=== PATIENT | male | born 1955 | race Caucasian/White ===

== ENCOUNTER 2017-07-30 10:08 | Emergency (ER) | payer OTHER ==
[~2017-07-30] VITALS: Ht 177.8 cm; Wt 88.0 kg
[2017-07-30 10:10] VITALS: BP 172/89; PULSE 109; RESP 18; TEMP 98.8; O2SAT 97
[2017-07-30 10:28] LABS: BILIRUBIN, URINE NEG (NEG); BLOOD, URINE LARGE (NEG); GLUCOSE,URINE NEG (NEG); KETONE, URINE TRACE mg/dL (NEG); NITRITE,URINE POS (NEG); URINE COLOR YELLOW (YELLW/STRAW); URINE LEUKOCYTE ESTERASE MOD (NEG)
[2017-07-30] MEDS ORDERED: LOSA25TA PO (10:31)
[2017-07-30] MEDS ORDERED: CHOLESTROL (10:31)
[2017-07-30] MEDS ORDERED: LEVO50TA4 PO (10:31)
--- NOTE | 2017-07-30 10:32 | PD ---
HPI Chief Complaint: Complaint Time Seen by Provider: 10:31 Travel History International Travel<30 days: No Contact w/Intl Traveler<30days: No Traveled to known affect area: No History of Present Illness HPI Patient presents with urinary frequency and hematuria since 5:00 yesterday afternoon. Subjective fever. No new rashes. Sexually active. One partner. Denies any history of prostatitis or prostate cancer. Denies any flank pain. Taking fluids well. PFSH Past Medical History Cardiovascular Problems: Yes High Cholesterol: Yes Hypertension: Yes Thyroid Disease: Yes Tetanus Vaccination: Unknown Influenza Vaccination: No ?: Not Social History Alcohol Use: Yes ("A COUPLE BEERS DAILY") Tobacco Use: Yes (2 CIGARS A DAY) Substance Use: No Allergies-Medications (Allergen,Severity, Reaction): Coded Allergies: NSAIDS (Non-Steroidal Anti-Inflamma (Verified Allergy, Intermediate, Hives , 07/30/17) Reported Meds & Prescriptions Reported Meds & Active Scripts Active Reported [Cholestrol] Losartan (Losartan Potassium) 25 Mg Tab Unknown Dose PO DAILY Levothyroxine (Levothyroxine Sodium) 50 Mcg Tab 50 Mcg PO DAILY Review of Systems General / Constitutional: No: Fever Eyes: No: Visual changes HENT: No: Headaches Cardiovascular: No: Chest Pain or Discomfort Respiratory: No: Shortness of Breath Gastrointestinal: No: Abdominal Pain Genitourinary: Positive: Dysuria, Hematuria Musculoskeletal: No: Pain Skin: No Rash Neurologic: No: Weakness Psychiatric: No: Depression Endocrine: No: Polydipsia Hematologic/Lymphatic: No: Easy Bruising Physical Exam Narrative GENERAL: Well-nourished, well-developed patient. SKIN: Focused skin assessment warm/dry. HEAD: Normocephalic. EYES: No scleral icterus. No injection or drainage. NECK: Supple, trachea midline. No JVD or lymphadenopathy. CARDIOVASCULAR: Regular rate and rhythm without murmurs, gallops, or rubs. RESPIRATORY: Breath sounds equal bilaterally. No accessory muscle use. GASTROINTESTINAL: Abdomen soft, non-tender, nondistended. MUSCULOSKELETAL: No cyanosis, or edema. BACK: Nontender without obvious deformity. No CVA tenderness. Data Data Last Documented VS Vital Signs Date Time Temp Pulse Resp B/P (MAP) Pulse Ox O2 Delivery O2 Flow Rate FiO2 07/30/17 10:10 98.8 109 18 172/89 (116) 97 Orders Orders Urinalysis - C+S If Indicated (07/30/17 10:12) Urine Culture (07/30/17 10:15) Labs Laboratory Tests Test 07/30/17 10:15 Urine Collection Type CLEAN CATCH Urine Color YELLOW Urine Turbidity CLOUDY Urine pH 6.0 Urine Specific [place] 1.020 Urine Protein 30 mg/dL Urine Glucose (UA) NEG mg/dL Urine Ketones TRACE mg/dL Urine Occult Blood LARGE Urine Nitrite POS Urine Bilirubin NEG Urine Urobilinogen 1.0 MG/DL Urine Leukocyte Esterase MOD Urine RBC 15-19 /hpf Urine WBC 100-200 /hpf Urine WBC Clumps MOD Urine Squamous Epithelial Cells 0-5 /hpf Urine Amorphous Sediment MOD Urine Bacteria MOD /hpf Microscopic Urinalysis Comment CULTURE INDICATED Urine Collection Time 1015 MDM Medical Decision Making Medical Screen Exam Complete: Yes Emergency Medical Condition: Yes Differential Diagnosis UTI, cystitis, nephritis, nephrolithiasis, prostatitis Narrative Course Assessment and plan discussed with patient and at bedside. Urinalysis positive for UTI Diagnosis Primary Impression: UTI (urinary tract infection) Qualified Codes: N39.0 - Urinary tract infection, site not specified; R31.9 - Hematuria, unspecified Patient Instructions: General Instructions Additional Instructions: Encouraged fluids and a cranberry supplement. Follow-up with PCP. Return to emergency room if any onset of new symptoms. Med/Other Pt SpecificInfo: Prescription(s) given Scripts Ciprofloxacin (Cipro) 500 Mg Tab 500 MG PO BID for Infection for 3 Days, #6 TAB 0 Refills Prov: Patrice Adkins MD 07/30/17 Disposition: 01 DISCHARGE HOME Condition: Good Patrice Adkins MD Jul 30, 2017 10:32
[2017-07-30 10:44] LABS: AMORPHOUS SEDIMENT, URINE MOD; BACTERIA, URINE MOD /hpf; RBC, URINE 15-19 /hpf (0-3); SQUAMOUS EPITHELIAL CELL URINE 0-5 /hpf (0-5); WBC, URINE 100-200 /hpf (0-5); WHITE BLOOD CELL CLUMPS MOD
[2017-07-30] MEDS ORDERED: CIPR-9 PO (10:48)
== END 2017-07-30 11:00 | disposition home or self-care (01) ==
LOC: PHED 10:08
DX: N39.0 Urinary tract infection, site not specified (principal); R31.9 Hematuria, unspecified; B96.20 Unspecified Escherichia coli [E. coli] as the cause of diseases classified elsewhere; I10 Essential (primary) hypertension; Z72.0 Tobacco use
CPT/HCPCS: 81001; 87077; 87086; 87186; 99283

== ENCOUNTER 2017-08-01 07:01 | Emergency (ER) | payer OTHER ==
[~2017-08-01] VITALS: Ht 177.8 cm; Wt 80.0 kg
[~2017-08-01 07:01] MED LIST: CHOLESTROL; CIPR-9 PO; LEVO50TA4 PO; LOSA25TA PO
[2017-08-01 07:12] VITALS: BP 149/96; PULSE 103; RESP 20; TEMP 98.1; O2SAT 98
[2017-08-01] MEDS ORDERED: LOSA50TA PO (07:29)
[2017-08-01] MEDS ORDERED: ATOR10TA15 PO (07:29)
[2017-08-01] MEDS ORDERED: SODIUM CHLOR 0.9% 1000 ML INJ 1,000 ML IV ONE (07:30)
[2017-08-01] MEDS ORDERED: diphenhydrAMINE HCL 50 MG/ML VIAL IV PUSH ONE (07:30)
[2017-08-01] MEDS ORDERED: BACT800T5 PO (08:00)
[2017-08-01] MEDS ORDERED: BENA25CA4 PO (08:00)
[2017-08-01] MEDS ORDERED: EPIN1INJ19 IM (08:00)
--- NOTE | 2017-08-01 08:00 | PD ---
HPI Chief Complaint: Allergic/Adverse Reaction Time Seen by Provider: 07:15 Travel History International Travel<30 days: No Contact w/Intl Traveler<30days: No Traveled to known affect area: No History of Present Illness HPI This is a 61year-old male presents here complaining of hives on his chest. Patient was recently diagnosed with UTI and was given Cipro states that for the last 2 days he noticed hives on his chest that is itchy. Patient denies any shortness of breath or difficulty swallowing although reports tickling throat that started on the same time with the hives. Patient denies any vomiting, chest pain or abdominal pain. PFSH Past Medical History Cardiovascular Problems: Yes High Cholesterol: Yes Hypertension: Yes Musculoskeletal: Yes (achilles tendon repair) Thyroid Disease: Yes Tetanus Vaccination: Unknown Influenza Vaccination: No Social History Alcohol Use: Yes ("A COUPLE BEERS DAILY") Tobacco Use: Yes (2 CIGARS A DAY) Substance Use: No Allergies-Medications (Allergen,Severity, Reaction): Coded Allergies: aspirin (Verified Allergy, Severe, Hives, 08/01/17) ciprofloxacin (Verified Allergy, Severe, Hives, 08/01/17) NSAIDS (Non-Steroidal Anti-Inflamma (Verified Allergy, Intermediate, Hives , 07/30/17) Reported Meds & Prescriptions Reported Meds & Active Scripts Active Epinephrine Inj Pack (Epinephrine) 0.15 Mg/0.15 Ml Pfpen 0.15 Mg IM ONCE Bactrim DS (Sulfamethoxazole-Trimethoprim) 800-160 Mg Tab 1 Tab PO BID 7 Days Benadryl Allergy (Diphenhydramine HCl) 25 Mg Cap 50 Mg PO Q8HR Cipro (Ciprofloxacin HCl) 500 Mg Tab 500 Mg PO BID 3 Days Reported Atorvastatin (Atorvastatin Calcium) 10 Mg Tab 10 Mg PO HS Losartan (Losartan Potassium) 50 Mg Tab 50 Mg PO DAILY Levothyroxine (Levothyroxine Sodium) 50 Mcg Tab 50 Mcg PO DAILY Review of Systems Except as stated in HPI: all other systems reviewed are Neg Physical Exam Narrative GENERAL: Alert oriented 3 no acute distress breathing comfortably speaks in full sentences. SKIN: Focused skin assessment warm/dry. HEAD: Atraumatic. Normocephalic. EYES: Pupils equal and round. No scleral icterus. No injection or drainage. ENT: No nasal bleeding or discharge. Mucous membranes pink and moist. NECK: Trachea midline. No JVD. CARDIOVASCULAR: Regular rate and rhythm. No murmur appreciated. RESPIRATORY: No accessory muscle use. Clear to auscultation. Breath sounds equal bilaterally. GASTROINTESTINAL: Abdomen soft, non-tender, nondistended. Hepatic and splenic margins not palpable. MUSCULOSKELETAL: No obvious deformities. No clubbing. No cyanosis. No edema. NEUROLOGICAL: Awake and alert. No obvious cranial nerve deficits. Motor grossly within normal limits. Normal speech. PSYCHIATRIC: Appropriate mood and affect; insight and judgment normal. Data Data Last Documented VS Vital Signs Date Time Temp Pulse Resp B/P (MAP) Pulse Ox O2 Delivery O2 Flow Rate FiO2 08/01/17 08:35 86 16 140/88 (105) 98 08/01/17 07:21 Room Air 08/01/17 07:12 98.1 Orders Orders Diphenhydramine Inj (Benadryl Inj) (08/01/17 07:30) Sodium Chlor 0.9% 1000 Ml Inj (Ns 1000 M (08/01/17 07:30) Ed Discharge Order (08/01/17 08:00) MDM Medical Decision Making Medical Screen Exam Complete: Yes Emergency Medical Condition: Yes Differential Diagnosis Allergic reaction, eczema Narrative Course This is a 61-year-old male presents to the ER for allergic reaction other started 2 days ago after taking Cipro for UTI. Patient currently does not have any hives on exam throat is clear and airway is patent and he is breathing comfortably with normal consent for any respiratory distress. I give the patient fluids and Benadryl and he responded well to treatment in the ER. Patient was observed in his condition is unchanged. Patient is stable to be discharged with a prescription for Benadryl and EpiPen to be used as needed. I also gave him prescription for Bactrim and encouraged him to follow-up with his primary care physician. Diagnosis Primary Impression: Allergic reaction caused by a drug Qualified Codes: T78.40XA - Allergy, unspecified, initial encounter Additional Instructions: Use of the pen as needed for allergic reaction, use Benadryl if continues to have symptoms and stop taking the Cipro and take Bactrim for UTI. Follow-up with the primary care physician and return to the ER if symptoms change or do not improve. Scripts Epinephrine Inj Pack (Epinephrine Inj Pack) 0.15 Mg/0.15 Ml Pfpen 0.15 MG IM ONCE for Allergic Reaction, #1 PACK Prov: Haris Hart MD 08/01/17 Sulfamethoxazole-Trimethoprim (Bactrim DS) 800-160 Mg Tab 1 TAB PO BID for Infection for 7 Days, #14 TAB 0 Refills Prov: Haris Hart MD 08/01/17 Diphenhydramine HCl (Benadryl Allergy) 25 Mg Cap 50 MG PO Q8HR for Itching, #60 Prov: Haris Hart MD 08/01/17 Disposition: 01 DISCHARGE HOME Condition: Stable Haris Hart MD Aug 01, 2017 08:00
[2017-08-01 08:35] VITALS: BP 140/88
== END 2017-08-01 08:37 | disposition home or self-care (01) ==
LOC: PHED 07:01
DX: T78.40XA Allergy, unspecified, initial encounter (principal); I10 Essential (primary) hypertension; E07.9 Disorder of thyroid, unspecified
CPT/HCPCS: 96374; 99284; J1200; J7030

== ENCOUNTER 2017-08-05 15:02 | Emergency (ER) | payer OTHER ==
[~2017-08-05] VITALS: Ht 177.8 cm; Wt 88.8 kg
[~2017-08-05 15:02] MED LIST changes: +ATOR10TA15 PO; +BACT800T5 PO; +BENA25CA4 PO; -CHOLESTROL; +EPIN1INJ19 IM; -LOSA25TA PO; +LOSA50TA PO
[2017-08-05 15:08] VITALS: BP 155/92; PULSE 106; RESP 16; TEMP 100.5; O2SAT 97
[2017-08-05] MEDS ORDERED: SODIUM CHLOR 0.9% 1000 ML INJ 1,000 ML IV ONE (15:30)
[2017-08-05] MEDS ORDERED: ACETAMINOPHEN 325 MG TAB PO ONE (15:30)
--- NOTE | 2017-08-05 15:32 | PD ---
HPI Chief Complaint: Allergic/Adverse Reaction Time Seen by Provider: 15:23 Travel History International Travel<30 days: No Contact w/Intl Traveler<30days: No Traveled to known affect area: No History of Present Illness HPI 61-year-old male presents to the emergency department for evaluation of fever. Patient was seen on July 30, 2017 and was diagnosed with urinary tract infection. At that time, he was placed on Cipro. He took the Cipro for 2 days when he started having allergic reaction. He came back to the emergency department was placed on Benadryl. At that time, he was changed to Bactrim. Patient is been taking the Bactrim for 4 days. Patient states that he has been running intermittent fevers for one week. He states his fever was 102 before coming to the emergency department. He has not taken anything for his fever today. Patient states that he has a history of urinary tract infections. He denies any symptoms. No cough or congestion. No abdominal pain. No nausea, vomiting, diarrhea. He states his urine looks better. He denies any dysuria. Patient has history of hypertension, hyperlipidemia, hypothyroidism. Exacerbated alleviating factors. Moderate severity. PFSH Past Medical History Hx Anticoagulant Therapy: No Cardiovascular Problems: Yes (HTN, CHOL) High Cholesterol: Yes Hypertension: Yes Musculoskeletal: Yes (achilles tendon repair) Thyroid Disease: Yes Social History Alcohol Use: Yes ("A COUPLE BEERS DAILY") Tobacco Use: Yes (2 CIGARS A DAY) Substance Use: No Allergies-Medications (Allergen,Severity, Reaction): Coded Allergies: aspirin (Verified Allergy, Severe, Hives, 08/05/17) ciprofloxacin (Verified Allergy, Severe, Hives, 08/05/17) NSAIDS (Non-Steroidal Anti-Inflamma (Verified Allergy, Intermediate, Hives , 08/05/17) sulfamethoxazole (Verified Allergy, Intermediate, 08/05/17) trimethoprim (Verified Allergy, Intermediate, 08/05/17) Reported Meds & Prescriptions Reported Meds & Active Scripts Active Epinephrine Inj Pack (Epinephrine) 0.15 Mg/0.15 Ml Pfpen 0.15 Mg IM ONCE Bactrim DS (Sulfamethoxazole-Trimethoprim) 800-160 Mg Tab 1 Tab PO BID 7 Days Benadryl Allergy (Diphenhydramine HCl) 25 Mg Cap 50 Mg PO Q8HR Reported Atorvastatin (Atorvastatin Calcium) 10 Mg Tab 10 Mg PO HS Losartan (Losartan Potassium) 50 Mg Tab 50 Mg PO DAILY Levothyroxine (Levothyroxine Sodium) 50 Mcg Tab 50 Mcg PO DAILY Review of Systems Except as stated in HPI: all other systems reviewed are Neg Physical Exam Narrative GENERAL: Well-nourished, well-developed male patient, afebrile. SKIN: Focused skin assessment warm/dry. HEAD: Normocephalic. Atraumatic. ENT: Mucosa pink and moist. No erythema or exudates. No uvular edema. No uvular , palatal, or tonsillar deviation. Airway patent. Nasal turbinates appear normal without nasal blood, purulent drainage or septal hematoma. Bilateral tympanic membranes are clear without erythema or perforation. EYES: No scleral icterus. No injection or drainage. NECK: Supple, trachea midline. No JVD or lymphadenopathy. CARDIOVASCULAR: Regular rate and rhythm without murmurs, gallops, or rubs. RESPIRATORY: Breath sounds equal bilaterally. No accessory muscle use. Lungs sounds are clear to auscultation. GASTROINTESTINAL: Abdomen soft, non-tender, nondistended. MUSCULOSKELETAL: No cyanosis, or edema. BACK: Nontender without obvious deformity. No CVA tenderness. Data Data Last Documented VS Vital Signs Date Time Temp Pulse Resp B/P (MAP) Pulse Ox O2 Delivery O2 Flow Rate FiO2 08/05/17 16:43 99.9 85 20 119/73 (88) 97 Room Air Orders Orders Complete Blood Count With Diff (08/05/17 15:29) Comprehensive Metabolic Panel (08/05/17 15:29) Lactic Acid Sepsis Protocol (08/05/17 15:29) Urinalysis - C+S If Indicated (08/05/17 15:29) Influenzae A/B Antigen (08/05/17 15:29) Ecg Monitoring (08/05/17 15:29) Iv Access Insert/Monitor (08/05/17 15:29) Oximetry (08/05/17 15:29) Oxygen Administration (08/05/17 15:29) Sodium Chlor 0.9% 1000 Ml Inj (Ns 1000 M (08/05/17 15:30) Acetaminophen (Tylenol) (08/05/17 15:30) Blood Culture (08/05/17 15:32) Labs Laboratory Tests Test 08/05/17 15:50 08/05/17 16:00 White Blood Count 5.3 TH/MM3 Red Blood Count 4.47 MIL/MM3 Hemoglobin 13.3 GM/DL Hematocrit 38.9 % Mean Corpuscular Volume 87.0 FL Mean Corpuscular Hemoglobin 29.7 PG Mean Corpuscular Hemoglobin Concent 34.1 % Red Cell Distribution Width 12.2 % Platelet Count 232 TH/MM3 Mean Platelet Volume 7.7 FL Neutrophils (%) (Auto) 80.4 % Lymphocytes (%) (Auto) 9.2 % Monocytes (%) (Auto) 8.9 % Eosinophils (%) (Auto) 0.9 % Basophils (%) (Auto) 0.6 % Neutrophils # (Auto) 4.3 TH/MM3 Lymphocytes # (Auto) 0.5 TH/MM3 Monocytes # (Auto) 0.5 TH/MM3 Eosinophils # (Auto) 0.0 TH/MM3 Basophils # (Auto) 0.0 TH/MM3 CBC Comment DIFF FINAL Differential Comment Blood Urea Nitrogen 15 MG/DL Creatinine 1.20 MG/DL Random Glucose 97 MG/DL Total Protein 7.6 GM/DL Albumin 3.6 GM/DL Calcium Level 8.1 MG/DL Alkaline Phosphatase 68 U/L Aspartate Amino Transf (AST/SGOT) 23 U/L Alanine Aminotransferase (ALT/SGPT) 49 U/L Total Bilirubin 0.4 MG/DL Sodium Level 129 MEQ/L Potassium Level 3.9 MEQ/L Chloride Level 98 MEQ/L Carbon Dioxide Level 23.1 MEQ/L Anion Gap 8 MEQ/L Estimat Glomerular Filtration Rate 61 ML/MIN Lactic Acid Level 0.8 mmol/L Urine Collection Type CATH Urine Color YELLOW Urine Turbidity CLEAR Urine pH 5.5 Urine Specific [place] LESS/EQUAL 1.005 Urine Protein NEG mg/dL Urine Glucose (UA) NEG mg/dL Urine Ketones NEG mg/dL Urine Occult Blood SMALL Urine Nitrite NEG Urine Bilirubin NEG Urine Urobilinogen 0.2 MG/DL Urine Leukocyte Esterase NEG Urine WBC 0-2 /hpf Microscopic Urinalysis Comment CATH-CULT NOT IND Urine Collection Time 1600 MDM Medical Decision Making Medical Screen Exam Complete: Yes Emergency Medical Condition: Yes Medical Record Reviewed: Yes Differential Diagnosis UTI versus pyelonephritis versus influenza versus viral syndrome versus URI versus sepsis Narrative Course 61-year-old male presents to the emergency department for evaluation of fevers that has been intermittent for the past week. He has been on antibiotics for UTI. He does look well on exam. IV access established. CBC, CMP, influenza, UA, blood cultures 2, lactic acid are ordered and pending. Patient is given normal saline 1 L IV bolus, Tylenol 650 mg by mouth for fever. CBC shows no acute abnormality. CMP shows hyponatremia with sodium of 129. Lactic acid is 0.8. UA is negative for acute infection. Lab called my attending physician, Dr. Estrella, and informed him that the patient was positive for influenza A and B. Patient will be discharged with I prescription for Tamiflu. He is instructed drink plenty of fluids, Tylenol [id number] as needed. He is to follow his primary care physician or return here for any acute worsening of symptoms. Patient verbalizes agreement. The patient was discharged in stable condition with instructions, including return instructions and follow up instructions. Diagnosis Primary Impression: Influenza Referrals: Primary Care Physician call for appointment Patient Instructions: General Instructions, Influenza (ED) Additional Instructions: Take Tamiflu as directed. [id number] Tylenol every 4 hours as needed for fever. Drink plenty of fluids. Rest. Follow-up with your primary care physician. Return to the emergency department for any acute worsening of symptoms. Med/Other Pt SpecificInfo: Prescription(s) given Scripts Oseltamivir (Tamiflu) 75 Mg Cap 75 MG PO BID for Mgmt Viral Infection for 5 Days, #10 CAP 0 Refills Prov: Saadia Curtis 08/05/17 Disposition: 01 DISCHARGE HOME Condition: Stable Saadia Curtis Aug 05, 2017 15:32
[2017-08-05 16:07] LABS: AUTOMATED NEUTROPHIL # 4.3 TH/MM3 (1.8-7.7); BASOPHIL % 0.6 % (0.0-2.0); EOSINOPHIL % 0.9 % (0.0-4.0); HEMATOCRIT 38.9 % (39.0-51.0); HEMOGLOBIN 13.3 GM/DL (13.0-17.0); LYMPH % 9.2 % (9.0-44.0); LYMPHOCYTE # 0.5 TH/MM3 (1.0-4.8); MEAN CORPUSCULAR HEMOGLOBIN 29.7 PG (27.0-34.0); MEAN CORPUSCULAR HGB CONC 34.1 % (32.0-36.0); MEAN PLATELET VOLUME 7.7 FL (7.0-11.0); MONO % 8.9 % (0.0-8.0); MONOCYTE # 0.5 TH/MM3 (0-0.9); NEUT % 80.4 % (16.0-70.0); PLATELET COUNT 232 TH/MM3 (150-450); RED BLOOD COUNT 4.47 MIL/MM3 (4.50-5.90); RED CELL DISTRIBUTION WIDTH 12.2 % (11.6-17.2); WHITE BLOOD COUNT 5.3 TH/MM3 (4.0-11.0)
[2017-08-05 16:15] VITALS: O2SAT 97
[2017-08-05 16:16] LABS: CHLORIDE 98 MEQ/L (98-107); SODIUM (NA) 129 MEQ/L (136-145)
[2017-08-05 16:19] LABS: ALBUMIN 3.6 GM/DL (3.4-5.0); CALCIUM 8.1 MG/DL (8.5-10.1)
[2017-08-05 16:20] LABS: BICARBONATE 23.1 MEQ/L (21.0-32.0); BLOOD UREA NITROGEN 15 MG/DL (7-18); GLUCOSE,RANDOM 97 MG/DL (74-106)
[2017-08-05 16:23] LABS: BILIRUBIN, URINE NEG (NEG); BLOOD, URINE SMALL (NEG); GLUCOSE,URINE NEG (NEG); KETONE, URINE NEG (NEG); NITRITE,URINE NEG (NEG); PH, URINE 5.5 (5.0-8.5); URINE COLOR YELLOW (YELLW/STRAW); URINE LEUKOCYTE ESTERASE NEG (NEG)
[2017-08-05 16:23] LABS: ALT (GPT) 49 U/L (12-78); AST (GOT) 23 U/L (15-37); GLOMERULAR FILTRATION RATE 61 ML/MIN (>89)
[2017-08-05 16:24] LABS: TOTAL BILIRUBIN ADULT 0.4 MG/DL (0.2-1.0); TOTAL PROTEIN 7.6 GM/DL (6.4-8.2)
[2017-08-05 16:25] LABS: ALKALINE PHOSPHATASE 68 U/L (45-117)
[2017-08-05 16:43] VITALS: BP 119/73; PULSE 85; RESP 20; TEMP 99.9; O2SAT 97
[2017-08-05 16:50] LABS: WBC, URINE 0-2 /hpf (0-5)
[2017-08-05] MEDS ORDERED: OSEL75 PO (17:15)
== END 2017-08-05 17:39 | disposition home or self-care (01) ==
LOC: PHEFT 15:02 → PHED 17:39
DX: J11.1 Influenza due to unidentified influenza virus with other respiratory manifestations (principal); R50.9 Fever, unspecified; E87.1 Hypo-osmolality and hyponatremia; I10 Essential (primary) hypertension; E78.5 Hyperlipidemia, unspecified; E03.9 Hypothyroidism, unspecified; Z72.0 Tobacco use; Z87.440 Personal history of urinary (tract) infections
CPT/HCPCS: 80053; 81001; 83605; 85025; 87040; 87804; 99283; J7030